=== PATIENT | female | born 1970 | race Caucasian/White ===

== ENCOUNTER → 2020-06-08 | Outpatient (CLI) | payer OTHER ==
[~2020-06-08] MED LIST: CHOL10002 PO; CYAN1TAB29 PO; HYDR473S51 PO; MULT-257 PO; ZOLP12.52 PO
== END | disposition home or self-care (01) ==
LOC: CFH 10:45
PROVIDERS: ATTEND Family Medicine
DX: Z12.31 Encounter for screening mammogram for malignant neoplasm of breast (principal)
CPT/HCPCS: 77063; 77067